=== PATIENT | female | born 1950 | race African-American/Black ===

== ENCOUNTER → 2022-08-13 | Outpatient (CLI) | payer OTHER | END | disposition home or self-care (01) | LOC: RAH 15:13 | PROVIDERS: ATTEND Internal Medicine | DX: R22.1 Localized swelling, mass and lump, neck (principal); E04.1 Nontoxic single thyroid nodule | CPT/HCPCS: 76536 ==

== ENCOUNTER → 2022-10-23 | Outpatient (CLI) | payer OTHER ==
[~2022-10-23] MED LIST: LIDOCAINE HCL MPF 1% 5ML VIAL ONE
[2022-10-23 08:37] LABS: INR 0.94 (0.85-1.15); PROTHROMBIN TIME 10.3 SEC (9.6-11.6)
[2022-10-23 08:38] LABS: PARTIAL THROMBOPLASTIN TIME 27.2 SEC (26.3-35.5)
== END | disposition home or self-care (01) ==
LOC: RAH 07:53
PROVIDERS: ATTEND Otolaryngology
DX: E04.1 Nontoxic single thyroid nodule (principal); Z79.01 Long term (current) use of anticoagulants
CPT/HCPCS: 10005; 85610; 85730; 87071; 87205; 36415; 88108; 88305; J3490; 76942

== ENCOUNTER 2023-01-07 06:15 | Day surgery (SDC) | payer OTHER ==
[2023-01-04 08:46] LABS: BASOPHILS % (AUTO) 0.5 % (0.0-5.0); EOSINOPHILS % (AUTO) 0.4 % (0.0-8.0); HEMATOCRIT 36.2 % (36-48); MEAN CORPUSCULAR HEMOGLOBIN 25.5 pg (27.0-33.0); MEAN CORPUSCULAR HGB CONC 31.5 g/dL (32.0-36.0); MONOCYTES % (AUTO) 10.1 % (3.0-13.0); NEUTROPHILS % (AUTO) 48.9 % (40.0-77.0); PLATELET COUNT (AUTO) 271 K/uL (130-400); RED BLOOD CELL COUNT(AUTO) 4.47 MIL/uL (4.00-5.50); RED CELL DISTRIBUTION WIDTH 16.4 % (11.0-15.5); WHITE BLOOD COUNT (AUTO) 7.7 K/uL (4.8-10.8)
[2023-01-04 08:49] LABS: APPEARANCE,URINE CLEAR (CLEAR); BILIRUBIN,URINE NEGATIVE (NEGATIVE); COLOR,URINE LIGHT-YELLOW (YELLOW); GLUCOSE, URINE (UA) NEGATIVE (NEGATIVE); KETONES,URINE NEGATIVE (NEGATIVE); LEUKOCYTE ESTERASE ,URINE NEGATIVE Leu/uL (NEGATIVE); NITRATE,URINE NEGATIVE (NEGATIVE); OCCULT BLOOD,URINE NEGATIVE (NEGATIVE); PROTEIN,URINE 30 mg/dL (NEGATIVE); UROBILINOGEN,URINE 0.2 mg/dL (0.2-1.0)
[2023-01-04 08:52] VITALS: BP 192/87
[2023-01-04 09:07] LABS: INR 0.93 (0.85-1.15); PROTHROMBIN TIME 10.2 SEC (9.6-11.6)
[2023-01-04 09:08] LABS: PARTIAL THROMBOPLASTIN TIME 26.1 SEC (26.3-35.5)
[2023-01-04 09:12] LABS: ALBUMIN 3.4 g/dL (3.5-5.0); BILIRUBIN,DIRECT 0.1 mg/dL (0.0-0.3); CREATININE 2.2 mg/dL (0.5-1.5); POTASSIUM 3.4 mmol/L (3.5-5.1)
[2023-01-04 09:21] LABS: BACTERIA,URINE RARE /HPF (None Seen); MUCUS,URINE RARE LPF (None Seen); SQUAMOUS EPITHELIAL CELL,UR MOD /HPF (0-2); WBC,URINE 0-1 /HPF (0-1)
[~2023-01-07] VITALS: Ht 167.6 cm; Wt 69.7 kg
[2023-01-07] VITALS (15 sets, daily range): BP systolic 138–159; BP diastolic 68–81
[~2023-01-07 06:15] MED LIST changes: +AEC81 PO; +ALLO100T PO; +ATOR40TA69 PO; +CARV25TA PO; +FLEC50TA3 PO; +FURO20TA4 PO; +HYDR-4154 PO; -LIDOCAINE HCL MPF 1% 5ML VIAL ONE; +SODI650T PO
[2023-01-07] MEDS ORDERED: BACITRACIN 28.4 GM OINT TP ONE (07:06)
[2023-01-07] MEDS ORDERED: LIDOCAINE 1%-EPI 1:100,000 20 ML VIAL IJ ONE ×2 (07:06→08:34)
[2023-01-07] MEDS ORDERED: ROCURONIUM 10MG/1ML SYR 10 MG/ML ML ONE (07:26)
[2023-01-07] MEDS ORDERED: ONDANSETRON 4MG INJ ONE (07:26)
[2023-01-07] MEDS ORDERED: MIDAZOLAM HCL 1 MG/ML 2ML VIAL ONE (07:26)
[2023-01-07] MEDS ORDERED: FENTANYL CITRATE PF 50 MCG/1 ML 2ML VIAL ONE ×2 (07:26→10:18)
[2023-01-07] MEDS ORDERED: PROPOFOL 10 MG/ML 20ML VIAL IV ONE (07:27)
[2023-01-07] MEDS ORDERED: GLYCOPYRROLATE 1 MG/5 ML SYRINGE ONE (08:38)
[2023-01-07] MEDS ORDERED: EPHEDRINE SULFATE 50 MG/ML AMPULE ONE (08:46)
[2023-01-07] MEDS ORDERED: NEOSTIGMINE 5MG/5ML SYR IV ONE (09:37)
[2023-01-07] MEDS ORDERED: MEPERIDINE-PF 25 MG/ML SYG ONE (10:01)
== END 2023-01-07 11:30 | disposition home or self-care (01) ==
LOC: DAH 06:15
PROVIDERS: ATTEND Otolaryngology Plastic Surgery within the Head & Neck
DX: R22.1 Localized swelling, mass and lump, neck (principal); Z20.822 Contact with and (suspected) exposure to COVID-19; E04.1 Nontoxic single thyroid nodule; I10 Essential (primary) hypertension; F17.200 Nicotine dependence, unspecified, uncomplicated; Z98.890 Other specified postprocedural states; Z79.899 Other long term (current) drug therapy; Z88.0 Allergy status to penicillin; Z88.8 Allergy status to other drugs, medicaments and biological substances; Z79.01 Long term (current) use of anticoagulants
CPT/HCPCS: 80076; 80048; 85025; 85610; 85730; 87426; 81001; 36415; 93005; 60200; 88305; A6260; A4663; A4606; J3010 ×2; J3490 ×4; J2710; J2250; J2704; J2405; J2175; A4649 ×2; A4930; A4215; A4223; A4222; A4221; A4600

== ENCOUNTER → 2025-09-10 | Outpatient (CLI) | payer OTHER, MEDICAID ==
[~2025-09-10] MED LIST changes: +CALC0.253 PO; +FERS325 PO; -FURO20TA4 PO; -HYDR-4154 PO
--- NOTE | 2025-09-11 09:48 | HMCIMG ---
EXAM: CT Chest Without IV contrast. CLINICAL HISTORY: SHORTNESS OF BREATH TECHNIQUE: Axial computed tomography images of the chest without intravenous contrast. COMPARISON: None provided. FINDINGS: LUNGS: There is mild dependent airspace disease within the bilateral lower lobes that is presumed to reflect atelectasis. No pulmonary mass. PLEURAL SPACES: No evidence of pneumothorax. No pleural effusion. HEART: Cardiomegaly. No significant pericardial effusion. Atherosclerotic calcification of the arch of the aorta and the thoracic aorta. Pacemaker left anterior chest wall With Leads: Right atrium and right ventricle LYMPH NODES: No lymphadenopathy is evident. UPPER ABDOMEN: Multiple hyperdense stones in the gallbladder, the largest 12 x 11 mm BONES: No acute osseous abnormality. Mild degenerative changes in the spine. IMPRESSION: 1. No acute intrathoracic findings. 2. Cardiomegaly. 3. Gallstones. /[place]
== END | disposition home or self-care (01) ==
LOC: RAH 13:32
PROVIDERS: ATTEND Family Medicine
DX: J98.11 Atelectasis (principal); I51.7 Cardiomegaly; K80.20 Calculus of gallbladder without cholecystitis without obstruction; R06.02 Shortness of breath; M47.814 Spondylosis without myelopathy or radiculopathy, thoracic region; Z87.891 Personal history of nicotine dependence
CPT/HCPCS: 71250